=== PATIENT | male | born 2000 | race Caucasian/White ===

== ENCOUNTER 2025-03-17 23:44 | Emergency (ER) | payer OTHER, SELFPAY ==
[2025-03-17 23:41] VITALS: BP 132/71; PULSE 78; RESP 16; TEMP 36.8; O2SAT 98; BMI 19.0
--- NOTE | 2025-03-17 23:41 | DI.RAD.S_ITS ---
PROCEDURE: XR CLAVICLE RT INDICATIONS: trauma TECHNIQUE: 2 views of the clavicle were acquired. COMPARISON: None. FINDINGS: Bones: Displaced and comminuted fracture of the mid/distal right clavicle shaft. Soft tissues: No suspicious soft tissue calcifications. IMPRESSION: Displaced and comminuted fracture of the mid/distal right clavicle shaft. Dictated by: Osmin Henry M.D. on 03/18/2025 at 0:29 Approved by: Osmin Henry M.D. on 03/18/2025 at 0:29
--- NOTE | 2025-03-17 23:42 | ED_ITS ---
HPI - Trauma General Chief Complaint: Extremity Injury, Upper Stated Complaint: poss broken clavicle History of Present Illness HPI narrative: 24-year-old male patient, otherwise healthy, who was playing Frisbee golf and stepped in a pothole landing on his right shoulder and believes he fractured his clavicle. No other injury. No head injury, neck pain or other areas of concern per the patient. Related Data Allergies Allergy/AdvReac Type Severity Reaction Status Date / Time No Known Drug Allergies Allergy Verified 03/17/25 23:41 Review of Systems Review of Systems ROS Unobtainable: All systems reviewed & are unremarkable except as noted in HPI and below Musculoskeletal Musculoskeletal: Reports as per HPI Patient History Social History Smoking Status: Current every day smoker Exam Narrative Exam Narrative: General: Alert and conversant. No distress. Appears well nourished and well hydrated Craniofacial: No evidence of trauma. Nontender and no swelling. Eyes: PERRLA EOMI conjunctiva clear Lungs: Nonlabored respiration. Musculoskeletal: Distal 3rd clavicle tenderness with slight deformity. Otherwise Exam of the extremities, axial spine and ribcage reveals no deformity, bony tenderness or swelling. Range of motion intact Neuro: Alert and oriented. Cranial nerves, motor, sensory and cerebellar all grossly intact. No focal deficit Skin: Warm and normal color. No rashes Psychological: Normal affect and interaction. No evidence of delusion or psychosis. Normal mood. Initial Vital Signs Initial Vital Signs: Vital Signs Temperature 98.2 F 03/17/25 23:41 Pulse Rate 78 03/17/25 23:41 Respiratory Rate 16 03/17/25 23:41 Blood Pressure 132/71 03/17/25 23:41 Pulse Oximetry 98 03/17/25 23:41 Oxygen Delivery Method Room Air 03/17/25 23:41 Course Orders Ordered: ED Orders 03/17/25 23:41 XR clavicle RT Stat Vital Signs Vital signs: Vital Signs - 8 hr 03/17/25 23:41 03/18/25 01:10 Temperature 98.2 F Pulse Rate 78 80 Respiratory Rate 16 17 Blood Pressure 132/71 126/58 L Pulse Oximetry 98 98 Oxygen Delivery Method Room Air Room Air MDM - Trauma ECG Data Attestation: I personally reviewed and interpreted this ECG as follows: (Distal 3rd clavicle comminuted fracture with mild displacement) [facility] Narrative Medical decision making narrative: Distal 3rd clavicle fracture. Plan is sling, ice and ibuprofen. Follow up with orthopedics or primary care for reassessment within the next week Discharge Plan Departure Patient Disposition: Home Clinical Impression: Fracture of clavicle Instructions: Clavicle Fracture Activity Restrictions/Additional Instructions: Plan: Sling, cold packs and ibuprofen. Follow up with your doctor or with orthopedics within the next week Stand Alone Forms: Patient Portal/API
[2025-03-18 01:10] VITALS: BP 126/58; PULSE 80; RESP 17; O2SAT 98
== END 2025-03-18 01:11 | disposition home or self-care (01) ==
LOC: ED 03-18 00:34
PROVIDERS: Emergency Provider Emergency Medicine
DX: S42.031A Displaced fracture of lateral end of right clavicle, initial encounter for closed fracture (principal); X58.XXXA Exposure to other specified factors, initial encounter
CPT/HCPCS: 73000; 99282; 99283